=== PATIENT | male | born 1995 | race African-American/Black ===

== ENCOUNTER 2017-03-21 09:55 | Emergency (ER) | payer MEDICAID ==
[~2017-03-21] VITALS: Ht 188 cm; Wt 94.5 kg
[2017-03-21] MEDS ORDERED: HYDROcodone/APAP 5/325 TABLET ONE (11:00)
[2017-03-21] MEDS ORDERED: HYDROcodone/APAP 5/325 TABLET PO ONE (11:00)
[2017-03-21 11:21] VITALS: BP 122/67
== END 2017-03-21 11:24 | disposition home or self-care (01) ==
LOC: ED 10:18
DX: S93.402A Sprain of unspecified ligament of left ankle, initial encounter (principal); S93.602A Unspecified sprain of left foot, initial encounter; X50.1XXA Overexertion from prolonged static or awkward postures, initial encounter; Y93.89 Activity, other specified; Y92.511 Restaurant or cafe as the place of occurrence of the external cause; Y99.9 Unspecified external cause status
CPT/HCPCS: 99284